=== PATIENT | male | born 1960 | race Caucasian/White ===

== ENCOUNTER 2018-09-05 02:58 | Emergency (ER) | payer OTHER ==
--- NOTE | 2018-09-05 04:56 | EDPHY ---
H & P Stated Complaint: R knee pain-seen at [facility] recently-wants pain meds Time Seen by Provider: 09/05/18 04:56 HPI/ROS: HPI CHIEF COMPLAINT: Right knee pain, chronic issue. HISTORY OF PRESENT ILLNESS: 58-year-old male, homeless, POOR HISTORIAN, suffers from chronic right knee pain. Patient reports to me that he was recently at [facility] yesterday for his right knee. He states he had some type a bone scan performed. He additionally reports to me that 2 weeks prior to that he was at [facility] for his right knee and had in area drained on the medial aspect of his right knee. He states it was an abscess. He still has sutures in place from this. Reports to me he is taking ciprofloxacin. However has been having drainage from the medial aspect of his right knee. Denies fever. Decided come the emergency room tonight due to increasing right knee pain. Presents emergency room complaining of right knee pain. He is requesting pain medication. States he has no further pain medication at home. He denies fever. Past Medical History: Chronic right knee pain. Past Surgical History: Multiple right knee surgeries. Social History: Homeless. Denies drugs or alcohol. Family History: Noncontributory ROS REVIEW OF SYSTEMS: PATIENT IS A POOR HISTORIAN. HISTORY AND REVIEW OF SYSTEMS IS LIMITED. Exam Constitutional triage nursing summary reviewed, vital signs reviewed, awake/ alert. Eyes normal conjunctivae and sclera, EOMI, PERRLA. HENT normal inspection, atraumatic, moist mucus membranes, no epistaxis, neck supple/ no meningismus, no raccoon eyes. Respiratory clear to auscultation bilaterally, normal breath sounds, no respiratory distress, no wheezing. Cardiovascular rate normal, regular rhythm, no murmur, no edema, distal pulses normal. Gastrointestinal soft, non-tender, no rebound, no guarding, normal bowel sounds, no distension, no pulsatile mass. Genitourinary no CVA tenderness. Musculoskeletal right lower extremity: What appears to be a chronically swollen right knee. Warmth present but no erythema.. Midline old scar. Medial aspect of the right knee there is a suture in place here. Yellow discharge from the right aspect. No redness. Range of motion is limited however not exquisitely tender. Distally there is a good distal pulse. Good cap refill. no midline vertebral tenderness, full range of motion, no calf swelling, no tenderness of extremities, no meningismus, good pulses, neurovascularly intact. Skin pink, warm, & dry, no rash, skin atraumatic. Neurologic awake, alert and oriented x 3, AAOx3, moves all 4 extremities equally, motor intact, sensory intact, CN II-XII intact, normal cerebellar, normal vision, normal speech. Psychiatric normal mood/affect. Heme/Lymph/Immune no lymphadenopathy. Differential Diagnosis: Includes but is not limited to in a particular order acute on chronic right knee pain, right knee joint effusion, infection, osteoarthritis Medical Decision Making: Plan for this patient basic blood work, will obtain medical records from [facility]. Re-evaluation: 0530: Patient had a pack of paper in his personal belongings that have some medical records. He is CT report from 08/23/2018 that shows rim enhancing multi lobulated septated fluid collection the anterior medial distal thigh involves the vastus medialis and intermedius extends to contact the underlying femoral shaft appearance is concerning for abscess however reportedly the aspirated fluid was clear this sterile he is not established by imaging alone also has evidence of chronic femoral osteomyelitis CT report in paper form from a [facility] Of note additionally the patient has after visit summary from of [facility] and states he has chronic osteomyelitis of the right knee anaerobic and Gram stain culture were pending on his arthrocentesis. Will try to obtain records of this. Patient was given a prescription for ciprofloxacin, Dilaudid and morphine. 0805: CT of the right knee with contrast called to me by direct Radiology REPORT CALLED TO ME AT 8:05 A.M. THIS SHOWS SOFT TISSUE SWELLING AROUND THE RIGHT KNEE , LARGE JOINT EFFUSION, LIMITED EXTENSIVELY DUE TO HARDWARE ARTIFACT ON THE CT SCAN, HOWEVER THERE IS BONY DESTRUCTION SEEN ON THE CT SCAN CONCERNING FOR OSTEOMYELITIS AND SEPTIC JOINT. PATIENT'S ESR AND CRP ARE ELEVATED. I HAVE CONSULT THE HOSPITALIST SERVICE FOR ADMISSION FOR THIS PATIENT. THE PATIENT IS HOMELESS WITH RIGHT KNEE PAIN. HE HAS BEEN ADMITTED TO AND WORKED UP AT [facility] I AM TRYING TO GET MEDICAL RECORDS FROM THEM ABOUT HIS PREVIOUS KNEE WORKUP. PATIENT REPORTS TO ME HE IS CURRENTLY ON CIPROFLOXACIN FOR HIS KNEE INFECTION. ON EXAM THERE IS A SMALL HOLE IN THE MEDIAL ASPECT THERE IS RIGHT KNEE WITH SUTURES IN PLACE THAT IS DRAINING YELLOW FLUID CONCERNING FOR INFECTION. I WILL CONSULT ORTHOPEDICS. PATIENT BE ADMITTED THE HOSPITAL FOR CONCERN OF SEPTIC JOINT OSTEOMYELITIS. WILL NEED TO OBTAIN OUTSIDE RECORDS. Dr. Hendricks Consulted 0820AM. Recommends ID Consult. Does not want an MRI at this time. I discussed the CT results. Recommends infectious disease consult for further management. Also need to obtain outside records. Please see full dictation of the CT report by direct Radiology. Right knee x-ray reviewed hardware in place. Calcifications present. Soft tissue swelling. Source: Patient - Personal History Current Tetanus Diphtheria and Acellular Pertussis (TDAP): Unsure - Medical/Surgical History Hx Asthma: No Hx Chronic Respiratory Disease: No Hx Diabetes: No Hx Cardiac Disease: No Hx Renal Disease: No Hx Cirrhosis: No Hx Alcoholism: No Hx HIV/AIDS: No Hx Splenectomy or Spleen Trauma: No Other PMH: chronic back and L arm pain - Social History Smoking Status: Never smoked Constitutional: Initial Vital Signs Temperature (C) 36.7 C 09/05/18 03:01 Heart Rate 87 09/05/18 03:01 Respiratory Rate 16 09/05/18 03:01 Blood Pressure 125/92 H 09/05/18 03:01 O2 Sat (%) 99 09/05/18 03:01 O2 Delivery Mode Room Air Allergies/Adverse Reactions: No Known Allergies Allergy (Verified 09/05/18 08:59) Home Medications: Medication Instructions Recorded Ciprofloxacin [Cipro] 500 mg PO BID 09/05/18 Ibuprofen [Motrin (*)] 200 mg PO DAILY PRN 09/05/18 Medical Decision Making - Data Points Laboratory Results: Laboratory Results 09/05/18 05:23 09/05/18 05:23 Medications Given: Discontinued Medications Ibuprofen (Motrin) 600 mg PO EDNOW ONE Stop: 09/05/18 10:48 Last Admin: 09/05/18 10:49 Dose: 600 mg Departure - Departure Disposition: Against Medical Advice Clinical Impression: Right knee pain Qualifiers: Chronicity: acute Qualified Code(s): M25.561 - Pain in right knee Condition: Fair
[2018-09-05 05:37] LABS: PLATELET COUNT 320 10^3/uL (150-400)
[2018-09-05] MEDS ORDERED: IOHEXOL 300 mgI/ML (OMNIPAQUE) 150 ML BTL IV ONE (06:09)
[2018-09-05] MEDS ORDERED: IBUPROFEN 600 MG TAB PO ONE (10:47)
[2018-09-05] MEDS ORDERED: HYDROCODONE/APAP 5/325 TAB PO PRN (11:27)
[2018-09-05] MEDS ORDERED: ACETAMINOPHEN 325 MG TAB PO PRN (11:27)
[2018-09-05] MEDS ORDERED: ONDANSETRON 4 MG/2 ML VIAL IVP PRN (11:27)
[2018-09-05] MEDS ORDERED: ONDANSETRON DISINTEGRATING 4 MG TAB PO PRN (11:27)
[2018-09-05 12:59] VITALS: BP 121/78
--- NOTE | 2018-09-05 14:41 | PDCONSULT ---
Supervisor Assembly Stock Note: Orthopedics was consulted for reyna portillo, a 58 yo male, for right knee pain and concern for right knee infection with history of right TKA by unknown orthopedic surgeon. Orthopedics attempted to find patient in ED obs/3N/imaging, to no avail, was finally informed by ED nurse that patient left AMA. Notified that patient would be admitted Pt never seen or examined or any discussion with the patient left AMA from the ER prior to any evaluation Thank you for this consult, reconsult if patient returns
--- NOTE | 2018-09-05 15:49 | HOSPPROG ---
Hospitalist Progress Note Assessment/Plan: Notified that patient would be admitted Pt never seen or examined or any discussion with the patient left AMA from the ER prior to any evaluation preliminary orders placed before pt was seen Objective: Vital Signs Temp Pulse Resp BP Pulse Ox 36.7 C 75 18 121/78 H 98 09/05/18 12:00 09/05/18 12:00 09/05/18 12:00 09/05/18 12:00 09/05/18 12:00 ICD10 Worksheet Patient Problems: Problems Problem Status Onset Right knee pain Acute
== END 2018-09-05 13:26 | disposition left against medical advice (07) ==
LOC: EDUNIT# → UNDOADMOB 08:07
DX: Z53.21 Procedure and treatment not carried out due to patient leaving prior to being seen by health care provider (principal); M25.561 Pain in right knee; Z96.651 Presence of right artificial knee joint; Z59.0 Homelessness
CPT/HCPCS: 73562; 73701; 99285; Q9967; 80307; G0480